=== PATIENT | female | born 1945 | race Two or more races ===

== ENCOUNTER 2018-03-09 06:18 | Outpatient (CLI) | payer OTHER ==
[~2018-03-09 06:18] MED LIST: ASPIR 8181 MG; COZAAR100 MG; LEVAQUIN750 MG PO; SIMVASTATIN20 MG; TUSSI-PRES LIQ118 ML PO; VITAMIN D1000 UNIT
== END 2018-03-09 07:13 | disposition home or self-care (01) ==
LOC: NUCLEAR 06:18
DX: I11.9 Hypertensive heart disease without heart failure (principal); E78.4 Other hyperlipidemia; I49.1 Atrial premature depolarization; R07.89 Other chest pain; I25.10 Atherosclerotic heart disease of native coronary artery without angina pectoris
CPT/HCPCS: 78452; 93017; A9500; J0153

== ENCOUNTER 2018-04-29 13:14 | Emergency (ER) | payer OTHER ==
[~2018-04-29] VITALS: Ht 162.6 cm; Wt 67.1 kg
== END 2018-04-29 17:10 | disposition home or self-care (01) ==
LOC: ER 13:14 → EMR PED 13:21 → ER 13:21
DX: J40 Bronchitis, not specified as acute or chronic (principal); B34.9 Viral infection, unspecified; J11.1 Influenza due to unidentified influenza virus with other respiratory manifestations

== ENCOUNTER 2019-04-09 10:21 | Outpatient (CLI) | payer OTHER | END 2019-04-09 10:26 | disposition home or self-care (01) | LOC: RAD 10:21 | DX: M19.041 Primary osteoarthritis, right hand (principal); M19.042 Primary osteoarthritis, left hand ==

== ENCOUNTER → 2019-05-31 12:23 | Outpatient (CLI) | payer OTHER | END | disposition home or self-care (01) | LOC: LAB 12:23 | DX: M06.89 Other specified rheumatoid arthritis, multiple sites (principal); M32.19 Other organ or system involvement in systemic lupus erythematosus; D68.61 Antiphospholipid syndrome; M35.00 Sjogren syndrome, unspecified; E83.39 Other disorders of phosphorus metabolism; E83.42 Hypomagnesemia; E83.119 Hemochromatosis, unspecified ==

== ENCOUNTER 2019-07-29 05:59 | Day surgery (SDC) | payer OTHER ==
[~2019-07-29 05:59] MED LIST changes: +OMEPRAZOLE20 MG PO; +SIMVASTATIN10 MG PO; +TIZANIDINE HCL4 M1 PO
[2019-07-29] MEDS ORDERED: KETOROLAC TROME10 MG PO (09:42)
[2019-07-29] MEDS ORDERED: ULTRACET PO (09:42)
[2019-07-29] MEDS ORDERED: NEURONTIN300 MG PO (09:44)
[2019-07-29] MEDS ORDERED: RECTICARE30 GM TOP (09:46)
== END 2019-07-29 14:10 | disposition home or self-care (01) ==
LOC: CIR.AMB 05:59
DX: K62.6 Ulcer of anus and rectum (principal)

== ENCOUNTER 2019-08-23 12:35 | Emergency (ER) | payer OTHER ==
[~2019-08-23] VITALS: Ht 162.6 cm; Wt 66.7 kg
[~2019-08-23 12:35] MED LIST changes: +KETOROLAC TROME10 MG PO; +NEURONTIN300 MG PO; +RECTICARE30 GM TOP; +ULTRACET PO
[2019-08-23] MEDS ORDERED: CLARITIN10 MG PO (14:49)
[2019-08-23] MEDS ORDERED: ZITHROMAX500 MG PO (14:49)
[2019-08-23] MEDS ORDERED: TUSNEL LIQUID178 ML PO (14:49)
== END 2019-08-23 14:58 | disposition home or self-care (01) ==
LOC: ER 12:35
DX: B34.9 Viral infection, unspecified (principal)

== ENCOUNTER 2023-04-16 14:30 | Emergency (ER) | payer OTHER ==
[~2023-04-16] VITALS: Ht 162.6 cm; Wt 65.8 kg
[~2023-04-16 14:30] MED LIST changes: +CLARITIN10 MG PO; +TUSNEL LIQUID178 ML PO; +ZITHROMAX500 MG PO
[2023-04-16] MEDS ORDERED: AMOX-CLAV 875-1 EAC1 PO (18:05)
== END 2023-04-16 18:19 | disposition home or self-care (01) ==
LOC: ER 14:30
DX: H66.91 Otitis media, unspecified, right ear (principal); H92.01 Otalgia, right ear

== ENCOUNTER 2024-06-23 12:50 | Emergency (ER) | payer OTHER ==
[~2024-06-23] VITALS: Ht 162.6 cm; Wt 68.0 kg
[~2024-06-23 12:50] MED LIST changes: +AMOX-CLAV 875-1 EAC1 PO
[2024-06-23] MEDS ORDERED: LOSARTAN-HCTZ1 EAC1 PO (13:09)
[2024-06-23] MEDS ORDERED: TRIJARDY XR 5-1 EACH PO (13:09)
[2024-06-23] MEDS ORDERED: ROSUVASTATIN CA40 MG PO (13:09)
[2024-06-23] MEDS ORDERED: VITAMIN D31250 MCG PO (13:10)
[2024-06-23] MEDS ORDERED: DICLOFENAC POTA50 MG PO (13:10)
[2024-06-23] MEDS ORDERED: FAMOTIDINE/PF 20 MG/2 ML VIAL IV ONE (14:30)
[2024-06-23] MEDS ORDERED: FAMOTIDINE/PF 20 MG/2 ML VIAL ONE (14:49)
[2024-06-23 15:27] LABS: HEMATOCRIT 40.7 % (36.0-45.00); HEMOGLOBIN 13.5 g/dL (12.0-15.00); MEAN CELL VOLUME 82.2 fL (80.00-100.00); MEAN CORPUSCULAR HEMOGLOBIN 27.3 pg (27.00-32.0); MEAN CORPUSCULAR HGB CONC 33.2 g/dl (32.0-36.0); PLATELET COUNT 352 K/uL (150-450); RED BLOOD COUNT 4.95 M/uL (4.00-6.00); RED CELL DISTRIBUTION WIDTH 14.2 % (11.5-14.5)
[2024-06-23 15:32] LABS: BILIRUBIN TOTAL 0.45 mg/dL (0.3-1.2); CREATININE SERUM 0.9 mg/dL (0.55-1.02); GFR 60.09; GLOBULINA 3.4 G/DL (2.4-3.5); POTASSIUM 4.13 mEq/L (3.5-5.1); TOTAL PROTEIN 7.4 gm/dL (6.4-8.2)
== END 2024-06-23 16:26 ==
LOC: ER 12:52
PROVIDERS: Nurse Practitioner Family
DX: E11.65 Type 2 diabetes mellitus with hyperglycemia (principal); Z79.84 Long term (current) use of oral hypoglycemic drugs; I10 Essential (primary) hypertension

== ENCOUNTER 2024-09-22 00:08 | Emergency (ER) | payer OTHER ==
[~2024-09-22] VITALS: Ht 162.6 cm; Wt 65.8 kg
[~2024-09-22 00:08] MED LIST changes: +DICLOFENAC POTA50 MG PO; +LOSARTAN-HCTZ1 EAC1 PO; +ROSUVASTATIN CA40 MG PO; +TRIJARDY XR 5-1 EACH PO; +VITAMIN D31250 MCG PO
== END 2024-09-22 02:11 | disposition home or self-care (01) ==
LOC: ER 00:08
DX: R53.81 Other malaise (principal); E11.65 Type 2 diabetes mellitus with hyperglycemia